=== PATIENT | female | born 1995 | race Caucasian/White ===

== ENCOUNTER 2023-12-02 07:10 | Inpatient (IN) | payer BC ==
[2023-12-02] MEDS ORDERED: Lidocaine 1% 50 ML MDV INJECT PRN (07:19)
[2023-12-02] MEDS ORDERED: Nalbuphine 10 MG/1 ML Vial IVPUSH PRN (07:19)
[2023-12-02] MEDS ORDERED: Sodium Chloride 0.9% 10 ML Syringe FLUSH PRN (07:19)
[2023-12-02] MEDS ORDERED: Acetaminophen 325 MG Tab PO PRN (07:19)
[2023-12-02] MEDS ORDERED: Ondansetron 4 MG/2 ML SDV IVPUSH PRN (07:19)
[2023-12-02] MEDS ORDERED: Calcium Carbonate 500 MG Tab.Chew PO PRN (07:19)
[2023-12-02] MEDS ORDERED: Oxytocin/0.9 % Sodium Chloride 30 UNIT/500 ML BAG IV SCH (07:30)
[2023-12-02 07:47] LABS: BASOPHILS ABSOLUTE AUTO 0.1 K/mm3 (0.0-0.2); BASOPHILS PERCENT AUTO 0.5 % (0.0-1.0); EOSINOPHILS ABSOLUTE AUTO 0.1 K/mm3 (0.0-0.4); EOSINOPHILS PERCENT AUTO 1.2 % (0.0-6.0); HEMATOCRIT 36.9 % (37.0-47.0); HEMOGLOBIN 12.6 gm/dl (12.0-16.0); IMMATURE GRAN ABSOLUTE AUTO 0.25 K/mm3 (0.00-0.05); IMMATURE GRAN PERCENT AUTO 2.4 % (0.0-0.4); LYMPHOCYTES ABSOLUTE AUTO 1.5 K/mm3 (1.0-4.8); LYMPHOCYTES PERCENT AUTO 14.4 % (24.0-44.0); MEAN CORPUSCULAR HEMOGLOBIN 31.2 pg (28.0-32.0); MEAN CORPUSCULAR HGB CONC 34.1 g/dl (32.0-36.0); MEAN CORPUSCULAR VOLUME 91.3 fl (83.0-99.0); MEAN PLATELET VOLUME 9.1 fl (9.4-12.3); MONOCYTES ABSOLUTE AUTO 0.6 K/mm3 (0.0-0.8); MONOCYTES PERCENT AUTO 5.7 % (0.0-8.0); NEUTROPHILS ABSOLUTE AUTO 7.8 K/mm3 (1.8-7.7); NEUTROPHILS PERCENT AUTO 75.8 % (41.0-71.0); PLATELET COUNT,PLT 230 K/mm3 (150-400); RED BLOOD CELL COUNT 4.04 M/mm3 (4.10-5.30); WHITE BLOOD CELL COUNT,WBC 10.26 K/mm3 (3.9-11.3)
[2023-12-02] MEDS: Misoprostol 25 MCG (1/4 of 100 MCG) Tab VAG ONE (08:05)
[2023-12-02] MEDS: Sodium Chloride 0.9% 10 ML Syringe FLUSH SCH (12:21)
[2023-12-02] MEDS: Misoprostol 25 MCG (1/4 of 100 MCG) Tab VAG PRN (12:24)
[2023-12-02] MEDS: Ampicillin 2 GM in Sodium Chloride 0.9% 100 ML IV ONE (19:51)
[2023-12-03] MEDS: Ampicillin 1 GM in Sodium Chloride 0.9% 100 ML IV SCH (00:07)
[2023-12-03] MEDS: Oxytocin/0.9 % Sodium Chloride 30 UNIT/500 ML BAG IV SCH (01:36)
[2023-12-03] MEDS: Lactated Ringers 1,000 ML IV SCH (01:42)
[2023-12-03] MEDS ORDERED: ePHEDrine 50 MG/ML SDV IVPUSH PRN (03:35)
[2023-12-03] MEDS ORDERED: diphenhydrAMINE 50 MG/ML SDV IVPUSH PRN (03:35)
[2023-12-03] MEDS ORDERED: fentaNYL 100 MCG/2 ML SDV EPIDUR PRN (11:50)
[2023-12-03] MEDS: fentaNYL 100 MCG/2 ML SDV EPIDUR PRN (11:58)
[2023-12-03] MEDS: Bupivacaine/fentaNYL/NS 100 ML Bag EPIDUR PRN (12:53)
[2023-12-03] MEDS ORDERED: Docusate Sodium 100 MG Cap PO PRN (15:01)
[2023-12-03] MEDS ORDERED: Acetaminophen 325 MG Tab PO PRN (15:01)
[2023-12-03] MEDS: Benzocaine/Menthol 20%-0.5% Spray 78 GM Cannister TOP PRN (16:38)
[2023-12-03] MEDS: Witch Hazel Medicated Pads 40/Jar TOP PRN (16:39)
[2023-12-03] MEDS: Ibuprofen 600 MG Tab PO SCH (16:39)
== END 2023-12-05 10:55 | disposition home or self-care (01) | DRG 560 ==
LOC: JD.OBCHECK 07:10 → JD.OB 07:14 → JD.OBCHECK 07:20 → JD.OB 07:21 → OBSVTOIN 12-03 14:02 → JD.OB 12-03 14:02
PROVIDERS: ADMIT Obstetrics & Gynecology; ATTEND Obstetrics & Gynecology
PROC: 10E0XZZ Delivery of Products of Conception, External Approach (ICD-10-PCS; principal; 2023-12-03)
PROC: 3E0R3BZ Introduction of Anesthetic Agent into Spinal Canal, Percutaneous Approach (ICD-10-PCS; 2023-12-03)
PROC: 00HU33Z Insertion of Infusion Device into Spinal Canal, Percutaneous Approach (ICD-10-PCS; 2023-12-03)
PROC: 10H07YZ Insertion of Other Device into Products of Conception, Via Natural or Artificial Opening (ICD-10-PCS; 2023-12-03)
PROC: 3E0P7VZ Introduction of Hormone into Female Reproductive, Via Natural or Artificial Opening (ICD-10-PCS; 2023-12-03)
PROC: 10907ZC Drainage of Amniotic Fluid, Therapeutic from Products of Conception, Via Natural or Artificial Opening (ICD-10-PCS; 2023-12-03)
DX: O99.824 Streptococcus B carrier state complicating childbirth (principal); Z37.0 Single live birth; Z3A.39 39 weeks gestation of pregnancy
CPT/HCPCS: 36415; 51702; 59025; 59409; 85025; 86592; 86850; 86900; 86901; A9270-GY; J0290; J3010; J3490; J7120; J7999